=== PATIENT | male | born 1965 | race Caucasian/White ===

== ENCOUNTER 2018-12-31 21:36 | Observation (INO) ==
[2019-01-01] MEDS ORDERED: ONDANSETRON INJ 2 MG/ML 2 ML VIAL IV PRN (00:43)
[2019-01-01] MEDS ORDERED: NITROGLYCERIN SL 0.4 MG/TAB TAB SL PRN (00:43)
[2019-01-01] MEDS ORDERED: MoRPHine SULFATE 2 MG/ML CARP IV PRN (00:43)
[2019-01-01 01:21] LABS: Basophils # (auto) 0.02 K/uL (0-0.2); Basophils % (auto) 0.3 %; Eosinophils # (auto) 0.13 K/uL (0-0.5); Hemoglobin 14.7 g/dL (14.0-18.0); Immature Granulocytes # (auto) 0.02 K/uL (0.00-0.02); Immature Granulocytes % (auto) 0.3 %; Lymphocytes # (auto) 2.14 K/uL (1.2-3.4); Lymphocytes % (auto) 32.2 %; Mean Corpuscular Volume 88.2 fL (80-100); Mean Platelet Volume 9.3 fL (7.4-10.4); Monocytes # (auto) 0.57 K/uL (0.11-0.59); Monocytes % (auto) 8.6 %; Neutrophils # (auto) 3.76 K/uL (1.4-6.5); Neutrophils % (auto) 56.6 %; Platelet Count 220 K/uL (130-400); RDW Standard Deviation 41.9 fL (36.4-46.3); Red Blood Count 4.76 M/uL (4.7-6.1); White Blood Count 6.64 K/uL (4.8-10.8)
[2019-01-01 01:39] LABS: BUN Creatinine Ratio 19.7 (10-20); Blood Urea Nitrogen 19 mg/dl (7-18); Calcium 8.7 mg/dl (8.5-10.1); Carbon Dioxide 31 mmol/L (21-32); Chloride 103 mmol/L (98-107); Creatinine Clr Calc Pharmacy 106.4 ml/min; Est GFR (African American) 99.7; Glucose 101 mg/dl (70-99); Magnesium 2.1 mg/dl (1.8-2.4); Sodium 138 mmol/L (136-145)
[2019-01-01 01:44] LABS: Chol HDL Ratio 5; Cholesterol 184 mg/dl (0-200); HDL Cholesterol 40 mg/dl; LDL Cholesterol Calculated 106 mg/dl; Triglycerides 190 mg/dl (0-150); Troponin I < 0.015 ng/ml (0-0.045); VLDL Cholesterol 38 mg/dl
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
[2019-01-01] MEDS ORDERED: LORazepam 0.5 MG TAB PO PRN (01:51)
[2019-01-01 06:46] LABS: Estimated Average Glucose 131 mg/dl; Hemoglobin A1C 6.2 % (4.5-5.6)
[2019-01-01 07:30] VITALS: BP 121/80; TEMP 98.2; O2SAT 95
--- NOTE | 2019-01-01 08:33 | XRay Report ---
XR chest 1V portable CLINICAL HISTORY: 53 years-old Male presenting with CP. TECHNIQUE: Portable upright AP view of the chest was obtained. COMPARISON: None. FINDINGS: Cardiomediastinal silhouette normal. No focal opacity. No large effusion or pneumothorax. Osseous str uctures normal. IMPRESSION: 1. No acute cardiopulmonary disease. Electronically signed by: Shahbaz Faria M.D. 01/01/2019 8:32 AM
[2019-01-01] MEDS ORDERED: PANTOprazole 40 MG TAB PO SCH (09:00)
[2019-01-01] MEDS ORDERED: ASPIRIN 81 MG ECTAB PO SCH (09:00)
[2019-01-01] MEDS ORDERED: ATORVASTATIN 10 MG TAB PO SCH (09:00)
[2019-01-01 12:21] VITALS: PULSE 81
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
[2019-01-01] MEDS ORDERED: SIMVASTATIN 20 MG TAB PO SCH (21:00)
== END 2019-01-01 13:45 | disposition home or self-care (01) ==
LOC: 2W → SUATTDRO 01-01 00:35